=== PATIENT | female | born 1980 | race African-American/Black ===

== ENCOUNTER 2017-02-12 | Observation (INO) | payer MEDICAID ==
[~2017-02-12] MED LIST: AUGMENTIN 875-1 EAC2 PO; BREAST PUMP MC; CLEOCIN VG; IBUPROFEN800 MG PO; NO HOME MEDICATION XX; NORCO 5/325 TAB1 TAB PO; PRENATAL VITAMI PO; PRENATAL1 EACH PO; [UNRECOGNIZED DRUG - OTHER] VG
[2017-02-12] MEDS ORDERED: FEROSUL325 M1 PO (23:50)
[2017-02-12] MEDS ORDERED: PRENA1 CHEW TA1.4 M1 PO (23:50)
[2017-04-09] MEDS ORDERED: IBUPROFEN800 M1 PO (00:26)
[2017-04-09] MEDS ORDERED: PERCOCET 5-3251 EACH PO (00:27)
[2017-04-15] MEDS ORDERED: TORSEMIDE20 M2 PO (12:44)
== END 2017-02-13 02:20 ==
DX: O47.03 False labor before 37 completed weeks of gestation, third trimester (principal); Z3A.31 31 weeks gestation of pregnancy

== ENCOUNTER 2017-03-14 20:09 | Observation (INO) | payer MEDICAID ==
[~2017-03-14 20:09] MED LIST changes: +FEROSUL325 M1 PO; +PRENA1 CHEW TA1.4 M1 PO
[2017-03-14 20:35] LABS: URINE APPEARANCE HAZY; URINE BILIRUBIN NEGATIVE (NEG); URINE BLOOD SMALL (NEG); URINE COLOR YELLOW; URINE GLUCOSE (UA) NEGATIVE (NEG); URINE KETONE NEGATIVE (NEG); URINE LEUKOCYTE ESTERASE POSITIVE (NEG); URINE NITRITE NEGATIVE (NEG); URINE PROTEIN NEGATIVE (NEG); URINE SPECIFIC GRAVITY 1.005 (1.003-1.030)
[2017-03-14 20:44] LABS: URINE BACTERIA 1+; URINE RBC 0-2 /[HPF] (0-5); URINE WBC 0-2 /[HPF] (0-5)
[2017-03-14 21:05] LABS: URINE BILIRUBIN NEGATIVE (NEG); URINE BLOOD MODERATE (NEG); URINE GLUCOSE (UA) NEGATIVE (NEG); URINE KETONE NEGATIVE (NEG); URINE LEUKOCYTE ESTERASE POSITIVE (NEG); URINE NITRITE NEGATIVE (NEG); URINE PH 6.5 (5.0-8.0); URINE PROTEIN NEGATIVE (NEG)
[2017-03-14 21:06] LABS: URINE APPEARANCE HAZY; URINE COLOR YELLOW
[2017-03-14 21:07] LABS: URINE RBC 0-2 /[HPF] (0-5); URINE WBC 0-2 /[HPF] (0-5)
[2017-04-09] MEDS ORDERED: IBUPROFEN800 M1 PO (00:26)
[2017-04-09] MEDS ORDERED: PERCOCET 5-3251 EACH PO (00:27)
[2017-04-15] MEDS ORDERED: TORSEMIDE20 M2 PO (12:44)
== END 2017-03-14 21:55 ==
LOC: LDR 20:09
PROVIDERS: Obstetrics & Gynecology; ADMIT Obstetrics & Gynecology
DX: O47.03 False labor before 37 completed weeks of gestation, third trimester (principal); O99.89 Other specified diseases and conditions complicating pregnancy, childbirth and the puerperium; R10.9 Unspecified abdominal pain; Z3A.35 35 weeks gestation of pregnancy